=== PATIENT | female | born 1995 | race Caucasian/White ===

== ENCOUNTER 2023-10-30 10:56 | Outpatient (OUT) | payer OTHER, SELFPAY ==
--- NOTE | 2023-10-30 | XR_ITS ---
The [address] [address] Patient Name: GAYE GARIBAY MRN: [id number] date: 1995 Sex: F Assigned Patient Location: Current Patient Location: Accession/Order Number: [id number] Exam Date: 10/30/2023 10:57 Report Date: 10/31/2023 07:38 At the request of: ELISSA MUNIZ Procedure: XR hand RT min 3V PROCEDURE: XR hand RT min 3V COMPARISON: None. HISTORY: RIGHT HAND PAIN FINDINGS: BONES:Fracture of the fifth metacarpal neck with 30 degrees of apex lateral angulation. No dislocation. No additional fracture. SOFT TISSUES:Negative. No visible soft tissue swelling. EFFUSION:None visible. OTHER: Negative. XR/XR hand RT min 3V IMPRESSION: Angulated fifth metacarpal neck fracture Electronically authenticated by: YAHAIRA NICHOLSON Date: 10/31/2023 07:38
== END 2023-10-30 10:57 | disposition home or self-care (01) ==
LOC: EC 10:56
PROVIDERS: PCP Orthopaedic Surgery; Visit Provider Orthopaedic Surgery
DX: S62.366A Nondisplaced fracture of neck of fifth metacarpal bone, right hand, initial encounter for closed fracture (principal)
CPT/HCPCS: 73130